=== PATIENT | female | born 1950 | race Caucasian/White ===

== ENCOUNTER → 2016-03-18 | Outpatient (CLI) | payer BC ==
--- NOTE | 2016-03-18 16:32 | MAMMOGRAPHY REPORT ---
BILATERAL DIGITAL SCREENING MAMMOGRAM WITH CAD: 03/18/2016 CLINICAL HISTORY: Routine screening. Patient has no complaints. TECHNIQUE: Bilateral CC and MLO views were obtained. Current study was also evaluated with a Comput er Aided Detection (CAD) system. COMPARISON: Comparison is made to exams dated: 03/06/2015 mammogram, 12/24/2012 mammogram, 12/27/19 14 mammogram, 07/23/2011 mammogram, 12/18/2010 mammogram, and 12/07/2009 mammogram - [facility]. BREAST COMPOSITION: There are scattered areas of fibroglandular density in both breasts. FINDINGS: There are stable intramammary lymph nodes in each upper outer quadrant. No new suspicious mass, architectural distortion or cluster of microcalcifications is seen. IMPRESSION: ACR BI-RADS CATEGORY 1: NEGATIVE There is no mammographic evidence of malignancy. A 1 year screening mammogram is recommended. The p atient will receive written notification of the results. Approximately 10% of breast cancers are not detected with mammography. A negative mammographic repor t should not delay biopsy if a clinically suggestive mass is present. Yumiko Orantes M.D. ay/:03/18/2016 15:05:09 Physician Primary Care Sports Medicine: Tania CLAY(Paul)(Brock), [facility] letter sent: Normal 1/2 BI-RADS Code: ACR BI-RADS Category 1: Negative
== END | disposition home or self-care (01) ==
LOC: C.MAMM 14:46
PROVIDERS: ATTEND Family Medicine
DX: Z12.31 Encounter for screening mammogram for malignant neoplasm of breast (principal)

== ENCOUNTER → 2017-03-24 | Outpatient (CLI) | payer OTHER ==
--- NOTE | 2017-03-25 15:30 | MAMMOGRAPHY REPORT ---
BILATERAL DIGITAL SCREENING MAMMOGRAM TOMOSYNTHESIS WITH CAD: 03/24/2017 CLINICAL HISTORY: Routine screening. Patient has no complaints. TECHNIQUE: Breast tomosynthesis in addition to standard 2D mammography was performed. Current study was also evaluated with a Computer Aided Detection (CAD) system. COMPARISON: Comparison is made to exams dated: 03/18/2016 mammogram, 03/06/2015 mammogram, 12/26/2013 mammogram, 12/24/2012 mammogram, 12/24/2011 mammogram, and 12/11/2010 mammogram - [facility]. BREAST COMPOSITION: There are scattered areas of fibroglandular density in both breasts. FINDINGS: There are stable intramammary lymph nodes in each upper outer quadrant, and stable nodulari ty in the lateral right breast. No new suspicious mass, architectural distortion or cluster of micro calcifications is seen. IMPRESSION: ACR BI-RADS CATEGORY 1: NEGATIVE There is no mammographic evidence of malignancy. A 1 year screening mammogram is recommended. The pa tient will receive written notification of the results. Approximately 10% of breast cancers are not detected with mammography. A negative mammographic report should not delay biopsy if a clinically suggestive mass is present. Yumiko Orantes M.D. ay/:03/24/2017 16:17:21 Vp Of Technology: Rosa RESENDIZ)(Brock), [facility] letter sent: Normal 1/2 BI-RADS Code: ACR BI-RADS Category 1: Negative
== END | disposition home or self-care (01) ==
LOC: C.MAMM 15:50
PROVIDERS: ATTEND Family Medicine
DX: Z12.31 Encounter for screening mammogram for malignant neoplasm of breast (principal)

== ENCOUNTER 2024-10-04 06:42 | Observation (INO) ==
--- NOTE | 2024-09-15 13:02 | PAT Medication Instructions ---
Medication Instructions Date of Service September 15, 2024 Home Medications Medication Instructions Recorded diclofenac sodium 75 mg 75 mg PO BID PRN pain #60 tabs 11/04/23 tablet,delayed release meclizine 12.5 mg tablet 12.5 mg PO TID PRN dizziness #20 08/17/24 tabs diclofenac sodium 75 mg tablet,delayed release 75 mg PO BID PRN pain levothyroxine 50 mcg tablet 50 mcg PO QAM meclizine 12.5 mg tablet 12.5 mg PO TID PRN dizziness omeprazole 40 mg capsule,delayed release 40 mg PO QAM rizatriptan 10 mg disintegrating tablet 10 mg PO UD PRN Migraine Headache Triflexerin 1 cap PO DAILY acetaminophen 500 mg tablet 1,000 mg PO Q6H PRN Pain albuterol sulfate 90 mcg/actuation aerosol inhaler 2 puff inhalation Q6H PRN Shortness Of Breath fluticasone propionate 50 mcg/actuation nasal spray,suspension (Flonase Allergy Relief) 2 spray intranasal DAILY ibuprofen 200 mg tablet 200 - 400 mg PO Q6H PRN Pain loratadine 10 mg tablet 10 mg PO DAILY PRN Allergy Symptoms omega-3 fatty acids 500 mg PO DAILY ASK your surgeon for instructions diclofenac sodium 75 mg tablet,delayed release 75 mg PO BID PRN pain ibuprofen 200 mg tablet 200 - 400 mg PO Q6H PRN Pain STOP taking 2 weeks before surgery (or as soon as possible if surgery is within 2 weeks) Triflexerin 1 cap PO DAILY omega-3 fatty acids 500 mg PO DAILY DO NOT take the morning of surgery loratadine 10 mg tablet 10 mg PO DAILY PRN Allergy Symptoms Take morning of surgery With a small sip of water, OTHERWISE NOTHING TO EAT OR DRINK AFTER MIDNIGHT: levothyroxine 50 mcg tablet 50 mcg PO QAM meclizine 12.5 mg tablet 12.5 mg PO TID PRN dizziness (if needed) omeprazole 40 mg capsule,delayed release 40 mg PO QAM rizatriptan 10 mg disintegrating tablet 10 mg PO UD PRN Migraine Headache (if needed) acetaminophen 500 mg tablet 1,000 mg PO Q6H PRN Pain (if needed) albuterol sulfate 90 mcg/actuation aerosol inhaler 2 puff inhalation Q6H PRN Shortness Of Breath (use if needed; please bring rescue inhaler with you to hospital day of surgery if possible) fluticasone propionate 50 mcg/actuation nasal spray,suspension (Flonase Allergy Relief) 2 spray intranasal DAILY Other Notes If you have any questions please call us at [phone] or [phone] or [phone] or [phone]
--- NOTE | 2024-09-19 09:52 | Anesthesiology Consultation ---
Date of Service September 19, 2024 Assessment & Plan (1) Encounter for pre-operative examination: Plan - awaiting [facility] PCP Dr. Zelaya response to clearance form. - Case discussed in detail with Dr. Hastings who advised patient have PCP clearance, nothing further will be needed from his standpoint. Patient made aware during PAT visit. Surgeon's office made aware. - PCP office visit 08/25/24: "...ER follow up, dizziness and numbness continues. taking meclizine as needed. does help...headache still on and off. Will order MRI of the brain...referral to neurology ordered...repeat TSH and free T4 in 6 weeks..." Patient reports ongoing facial numbness, intermittent headaches and dizziness (denies headaches or dizziness in clinic today) without change since seeing PCP. She states will establish care with neurology in several months. - ER 08/17/24 [facility]: "...left-sided facial tingling, dizziness, intermittent headaches, and weakness..feels like her head is spinning. Symptoms started 1 week ago...history of migraines and gets tingling in her face before her migraines, but the symptoms usually resolve after the migraine starts...migraines sometimes last for 3 days, but never up to a week...No other focal neurologic deficits by history or on exam. She does have normal sensation of the face on exam with no facial droop...has been having some shortness of breath along with the symptoms as well. Denies any chest pain...given meclizine 12.5 mg p.o. with resolution of the dizziness, but she still had the paresthesias to the left side of the face. However, she is still able to feel sensation to the left side of her face. No other focal neurologic deficits on exam...TSH elevated at 4.964 with a normal free T4 of 1.09. The patient was advised to follow-up with her PCP to determine if a change in her levothyroxine is needed. Urinalysis showed trace leukocyte esterase, but otherwise negative. Lyme disease screen negative. CT scan of the head without contrast showed no acute intracranial abnormality. CTA of the head and neck with IV contrast showed no acute evidence for CVA, aneurysm, occlusion, stenosis, dissection, or other acute abnormalities. CTA of the chest with IV contrast shows no evidence for PE, pneumonia, dissection, or other acute abnormality...patient's symptoms may also be secondary to a peripheral cause of vertigo and she was advised to follow-up with her family doctor for further outpatient management. Low suspicion for ACS as a cause of her symptoms given the normal EKG, high sensitive troponin, and recent stress echo...Admission was considered due to the patient's dizziness and paresthesias of her face. However, the symptoms have been present for the past week, she has no focal deficits on exam, and her symptoms did somewhat improve with the meclizine. The patient feels well and wishes to be discharged home..." Outpatient joint assessment: Patient is currently scheduled for inpatient pathway. If re-evaluated and patient/surgeon requests outpatient pathway, patient is not ideal candidate for outpatient joint program. Chart Review Chart Review: Pending: Refer to Additional Notes / Consult section and Patient seen in Pre Admission Testing Teaching & Discussion Pre-Anesthesia Teaching/Discussion Notes: Instructed NPO after midnight before surgery, except medications with 15 cc of water. Medication instructions provided according to the PAT guidelines. History Surgery Operation Date: 10/04/24 12:30 Proposed Procedures p Right Total Knee Arthroplasty - Ramon Blanco MD Height/Weight Height: 5 ft 7.5 in Weight: 84.1 kg Allergies Allergy/AdvReac Type Severity Reaction Status Date / Time azithromycin Allergy Unknown Verified 09/19/24 08:17 clindamycin Allergy Unknown Verified 09/19/24 08:17 Medications Home Medications Medication Instructions Recorded Confirmed Last Taken diclofenac sodium 75 mg 75 mg PO BID PRN pain #60 tabs 11/04/23 09/14/24 Unknown tablet,delayed release levothyroxine 50 mcg tablet 50 mcg PO QAM 08/17/24 09/14/24 Unknown meclizine 12.5 mg tablet 12.5 mg PO TID PRN dizziness #20 08/17/24 09/14/24 Unknown tabs omeprazole 40 mg capsule,delayed 40 mg PO QAM 08/17/24 09/14/24 Unknown release rizatriptan 10 mg disintegrating 10 mg PO UD PRN Migraine Headache 08/17/24 09/14/24 Unknown tablet Triflexerin 1 cap PO DAILY 09/14/24 09/14/24 Unknown acetaminophen 500 mg tablet 1,000 mg PO Q6H PRN Pain 09/14/24 09/14/24 Unknown albuterol sulfate 90 mcg/actuation 2 puff inhalation Q6H PRN 09/14/24 09/14/24 Unknown aerosol inhaler Shortness Of Breath fluticasone propionate 50 2 spray intranasal DAILY 09/14/24 09/14/24 Unknown mcg/actuation nasal spray,suspension (Flonase Allergy Relief) ibuprofen 200 mg tablet 200 - 400 mg PO Q6H PRN Pain 09/14/24 09/14/24 Unknown loratadine 10 mg tablet 10 mg PO DAILY PRN Allergy Symptoms 09/14/24 09/14/24 Unknown omega-3 fatty acids 500 mg PO DAILY 09/14/24 09/14/24 Unknown Past Medical History Medical History History of asthma exercise induced, more in cold weather, no recent issues; prn inhaler>rare use-last used several years History of hoarseness "has been losing voice from time to time, was previously scheduled for surgery for paralyzed left vocal cord" History of hypothyroidism Hx of gastroesophageal reflux (GERD) controlled, stable per pt Hx of hyperlipidemia Hx of migraines Hx of vertigo mid August 2024, ongoing-sees neurology Sept Moderate mitral regurgitation Moderate tricuspid regurgitation Paralyzed vocal cords left side, per pt Pulmonary hypertension mild Slow to wake up after anesthesia Patient denies h/o stroke, seizures, heart attack, heart failure, DM, HTN, blood clots/DVTs or blood transfusions. Exercise / Class Metabolic Activity II 4-5 Yardwork/Stairs/Walk up hill (shortness of breath with one flight of stairs ongoing for several years-denies change or worsening; denies chest discomfortt) Past Surgical History Surgical History History of esophagogastroduodenoscopy (EGD) Hx of arthroscopy of left knee (1989) meniscus repair Hx of bilateral cataract extraction (2023) Hx of colonoscopy Hx of wisdom tooth extraction (1979) Past Anesthesia History No Family Hx of Anesthesia Complications and Other (slow to wake with anesthesia) History of PONV No Hx of PONV and Hx of Motion Sickness Social History Smoking Status: Never smoker Do You Dip or Chew Tobacco: No Hx Alcohol Use: Yes alcohol intake frequency: holidays/special occasions only Hx Substance Use: No substance use type: does not use Review of Systems Snoring, denies witnessed apneas. Patient denies chest pain, shortness of breath, dyspnea on exertion, fever, chills, cough, wheezing, or palpitations. Physical Exam Vital Signs Vitals BP 124/79 P 68 TEMP 97.5 SP02 95% on RA RESP 18 Physical Patient resting comfortably in chair in no acute distress, alert and oriented, responding appropriately throughout visit Full cervical extension range of motion without pain TMD 3.5 finger breadths Mallampati Score 3 Dentition: two implants left upper and lower molars, several caps/crowns; denies chipped or loose teeth, or bridges Lungs: normal respiratory effort. Good air movement, clear throughout to auscultation, no adventitious breath sounds Cardiac: regular rate and rhythm, no murmurs noted Carotid arteries: negative bruit bilat Lab Results Anesthesia Preop Results Results Anesthesia Widget: WBC 7.98 K/ul (4.8-10.8) 08/17/24 Hgb 13.6 g/dl (12.0-16.0) 08/17/24 Hct 40.9 % (37.0-47.0) 08/17/24 Plt 275 K/uL (130-400) 08/17/24 Na 139 mmol/L (136-145) 08/17/24 K 4.0 mmol/L (3.5-5.1) 08/17/24 Cl 105 mmol/L (98-107) 08/17/24 CO2 27 mmol/L (21-32) 08/17/24 BUN 22 mg/dl (6-23) 08/17/24 Creat 0.90 mg/dl (0.6-1.2) 08/17/24 Glucose Level 89 mg/dl (70-99(Fasting)) 08/17/24 PT 10.4 Seconds (9.0-12.0) 08/17/24 PTT 26 Seconds (21-31) 08/17/24 INR 1.0 (0.9-1.1) 08/17/24 TSH 4.964 uIu/ml (0.300-4.500) H 08/17/24 Free T4 1.09 ng/dl (0.61-1.60) 08/17/24 Urine Color Yellow 08/17/24 Urine Appearance Clear (Clear) 08/17/24 Urine pH 6.0 (4.5-7.5) 08/17/24 Urine Specific [place] 1.004 (1.000-1.030) 08/17/24 Urine Protein Negative (Negative) 08/17/24 Urine Glucose (UA) Negative (Negative) 08/17/24 Urine Ketones Negative (Negative) 08/17/24 Urine Blood Negative (Negative) 08/17/24 Urine Nitrite Negative (Negative) 08/17/24 Urine Bilirubin Negative (Negative) 08/17/24 Urine Urobilinogen Negative (Negative) 08/17/24 Urine Leukocyte Esterase Trace (Negative) H 08/17/24 Urine WBC (Auto) 0-5 /hpf (0-5) 08/17/24 Urine RBC (Auto) 0-2 /hpf (0-2) 08/17/24 Urine Hyaline Casts (Auto) 0-2 /lpf (0-2) 08/17/24 Urine Epithelial Cells (Auto) 0-2 /hpf (0-2) 08/17/24 Urine Bacteria (Auto) None Seen (None Seen) 08/17/24 Blood Type A Negative 09/19/24 Antibody Screen NEGATIVE 09/19/24 Testing Electrocardiogram Date: 09/19/24 NSR, rate 60 bpm Chest X-Ray Date: 07/25/24 No pneumonia seen. Stress Test Date: 08/09/24 MPHR 88% Negative for myocardial ischemia Indeterminate ECG portion of pharmacologic stress test due to baseline ST abnormalities LVEF 60-65% Mild to moderate MR and TR Mild pulmonary hypertension, RVSP 30-40 mmHg Other Testing Brain MRI 09/11/24 1. No acute intracranial abnormality. 2. No abnormal enhancement. Chest CTA 08/17/24 1. No pulmonary emboli identified. 2. No acute intrathoracic findings. 3. Cardiomegaly. 4. 5 mm left lower lobe pulmonary nodule. This is likely benign. A chest CT in 6 months to ensure stability is recommended. 5. Mild biliary ductal dilatation. Correlate with liver function tests is recommended. Head and neck CTA 08/17/24 No significant arterial narrowing or occlusion seen at the brain. Unremarkable CTA of the neck. Head CT 08/17/24 No acute intracranial findings.
[~2024-10-04 06:42] MED LIST: BUPIVACAINE 0.25% PF 30 ML VIAL ONE; BUPIVACAINE 0.5 % 5 MG/1 ML PF 10ML VIAL ONE
[2024-10-04] MEDS: METOCLOPRAMIDE HCL 10 MG TABLET PO SCH (07:08)
[2024-10-04] MEDS: FAMOTIDINE 20 MG TAB PO SCH (07:08)
[2024-10-04] MEDS: ACETAMINOPHEN 500 MG TAB PO SCH ×2 (07:08→12:34)
[2024-10-04] MEDS: dexAMETHasone**PF** 10 MG/ML VIAL IV SCH (07:09)
[2024-10-04] MEDS: LR 60ML/HR IV SCH (07:09)
[2024-10-04] MEDS: CeleBREX 200 MG CAP PO SCH (07:09)
[2024-10-04] MEDS: LR 500ML BOLUS, THEN 15ML/HR IV SCH (07:23)
[2024-10-04] MEDS ORDERED: MIDAZOLAM HCL 1 MG/ML 2ML VIAL ONE (07:24)
[2024-10-04] MEDS ORDERED: LIDOCAINE 2% 2 ML VIAL/AMP(20MG/ML) INFIL ONE (07:24)
[2024-10-04] MEDS ORDERED: PROPOFOL IV EMULSION 10 MG/ML 100 ML VIAL IV ONE ×2 (07:27→08:21)
[2024-10-04] MEDS ORDERED: ONDANSETRON INJ 2 MG/ML 2 ML VIAL IV PRN ×2 (08:08→12:15)
[2024-10-04] MEDS ORDERED: ATROPINE SULFATE 0.1 MG/ML 10ML SYR IV PRN (08:08)
--- NOTE | 2024-10-04 08:36 | History & Physical Bridge Note ---
Date of Service October 04, 2024 History & Physical Bridge Note I have examined the patient, reviewed the History & Physical and in the interval since the performance of the History & Physical I have noted the following changes of clinical significance: no changes noted
[2024-10-04] MEDS: ORTHO JOINT ANESTHETIC ONE (09:50)
[2024-10-04] MEDS: ROPIV 0.5% 246mg, Ketorolac 30mg, EPINEPHrine 0.5mg in NSS INFIL SCH (09:51)
--- NOTE | 2024-10-04 10:53 | Operative Report ---
PG Post Operative Report Pre & Post Diagnosis Operation Date: 10/04/24 08:50 Pre-Op Diagnosis: Osteoarthritis knee right. Post-Op Diagnosis: Osteoarthritis knee right. I identified the patient and participated in the time-out.: Yes Procedure Operation Date: 10/04/24 08:50 Actual Procedures p Right Total Knee Arthroplasty(Right) - Ramon Blanco MD Surgeon Ramon Blanco MD Water Regulator And Valve Repairer Abisai Sargent PA-C Estimated Blood Loss 50 Findings Consistent with Post-Op Diagnosis Specimens Right knee sent for pathology. Anesthesia Type Spinal MAC Complications none Indications The patient is a 74-year-old female has a long history of bilateral knee pain the discomfort is gradually gotten worse over time. She failed conservative measures. X-rays show advanced bilateral knee arthritis. The right knee is bothering more than the left. She would like to proceed with right total knee arthroplasty. Description of Procedure Operative implants consist of: 1 Biomet Vanguard size 65 right posterior stabilized femoral component. 2. Biomet size 71 tibial tray. 3. 10 mm posterior stabilized polyethylene insert. 4. 31 x 8 all poly patella. The patient was taken to the op room, identified, placed on the operating table in the supine position. All conductors were appropriately padded. IV antibiotics were by anesthesia team. A spinal anesthetic and adductor canal block had provided in the holding area. Crook catheter was placed in sterile fashion. Right Tetrick was then placed in the right lower extremity was then prepped and draped in the usual sterile fashion. The right leg was elevated exsanguinated with use of an Esmarch and a turn was placed at 300 mmHg. An anterior approach of the right knee was then performed to longitudinal incision centered over the patella. Sharp dissection carried through subcutaneous tissue down to the extensor mechanism. A medial parapatellar arthrotomy incision was made. Some subperiosteal dissection was carried out medially. The fat pad was resected from his patella tendon. The lateral patellofemoral ligament was released. Patella subluxated laterally knee was flexed. The osteophytes taken off distal femur. The ACL PCL were then released in the distal femur and the tibia subluxated anteriorly. The external treatment LYMErix then placed on the anterior face of the tibia and adjusted 14 mm medially. The proximal tibial cut was made to remove about 2 mm of bone from the medial side. The tibia was then sized to a size 71. Attention drawn the femur. The distal femur examined with a sharp drill. Intramedullary canal was suction. A right 5 degree valgus cutting guide was placed. The distal femoral cutting block was pinned in place. The distal femoral cut was made taking additional 3 mm of bone off distal femur. The femur was then sized to a size 65. The AP cutting block was pinned parallel to the epicondylar axis which was 3 degrees of external rotation. Anterior cut, anterior chamfer, posterior cut, posterior chamfer cuts were made. The box cutting guide was placed and just slight lateral box cut was made. The knee was flexed. The remnants of the medial and lateral menisci were excised. The osteophytes were taken off the posterior aspect of the femur. A trial femoral component was placed. The tibial tray was pinned in Carlyn external rotation and the drill and stem punch used. Defect in the proximal tibia for the tibial tray. Knee was then trialed and the 10 mm insert fit most appropriately. Attention drawn the patella. The patella was cleaned of all soft tissues. Patella thickness measured about 23 mm in thickness and was cut down to about 13. It was sized to a size 31 patella. The lug holes were drilled for 31 patella. The lateral osteophytes removed. Patella button was placed. Knee was taken through range of motion patella tracked nicely with no thumbs test. Attention then drawn to placement permanent components. Components were removed. Bone plug was placed into the distal femur limb of blood loss. A double batch [place] G cement was mixed. A Biomet Vanguard size 65 right close stabilized femoral component, size 71 tibial tray, 10 mm posterior stabilized polyethylene insert, and a 31 x 8 all poly p atella then cemented in place. The knee was brought out into full extension till cement hardened. Final cement check was then performed. The pericapsular tissues were injected with total 100 cc of water mixed. Patient did receive 1 g tranexamic acid. The tourniquet was then let down for final tourniquet time 57 minutes. Hemostasis assured with electrocautery. Extensor Metros then closed with combination 1 PDS suture #1 Vicryl suture in a [id number] fashion. Extensor Meclomen was checked found to be intact with subcutaneous tissue then closed 2 Dexon suture in a buried interrupted fashion and the skin was closed skin andra. Leg was then cleaned and dried and a sterile dressing with Xeroform, 4 fours, sterile cast padding, Curry bandage were applied. Patient then transferred to the recovery room in stable condition. The patient tolerated procedure well and there were no complications. Abisai Sargent, my physician department assistant, was present for the entire procedure. His assistance was required for proper patient positioning, prepping and draping, surgical exposure, retraction, perform the technical details of the operation, placement of the implant, closure of the incision site, and placement of the sterile postoperative bandage. I attest to the content of the Intraoperative Record and any orders documented therein. Any exceptions are noted below.
--- NOTE | 2024-10-04 11:10 | XRay Report ---
XR knee RT 1 or 2V routine CLINICAL HISTORY: Surgical Post Op COMPARISON: 12/10/2023 FINDINGS: Right knee prosthesis shows no hardware complication. There is expected soft tissue gas. S kin andra are present anteriorly. IMPRESSION: Unremarkable postoperative exam. ACT 112: Negative or not required by law. Electronically signed by: Romel Bailey M.D. 10/04/2024 11:08 AM
--- NOTE | 2024-10-04 11:54 | Anesthesiology Progress Note ---
Date of Service October 04, 2024 Anesthesia Post Procedure Vital Signs Vital Signs: Temp Pulse Pulse Resp BP Pulse Ox O2 Del Method 10/04/24 11:50 82 14 144/65 H 94 Room Air 10/04/24 11:40 36.4 C L 84 12 136/70 95 Room Air 10/04/24 11:30 82 13 137/62 94 Room Air 10/04/24 11:20 80 14 141/58 H 95 Room Air 10/04/24 11:10 85 16 138/62 94 Room Air 10/04/24 11:00 81 18 131/61 95 Room Air 10/04/24 10:50 83 20 128/56 L 95 Room Air 10/04/24 10:45 36.1 C L 84 18 123/55 L 96 Room Air 10/04/24 07:03 37 C 73 20 159/86 H 97 Room Air Pain Intensity Left Heel: Pain Intensity: 0 Transfer of Care Handoff Completed per policy Notes Mental Status: alert / awake / arousable Patient Amnestic to Procedure: Yes Nausea / Vomiting: adequately controlled Pain: adequately controlled Airway Patency, RR, SpO2: stable & adequate BP & HR: stable & adequate Hydration State: stable & adequate Neuraxial Anesthesia: was administered and sensory block is resolving Anesthetic Complications: no major complications apparent and Pt Satisfied with anesthetic care
[2024-10-04] MEDS ORDERED: ALBUTEROL HFA 8 GM INHALER INH PRN (12:15)
[2024-10-04] MEDS ORDERED: ALUMINUM/MAGNESIUM SUSP 30 ML UDC PO PRN (12:15)
[2024-10-04] MEDS ORDERED: HYDROmorphone INJ 0.5 MG/0.5 ML SYR IV PRN (12:15)
[2024-10-04] MEDS ORDERED: MECLIZINE 12.5 MG TAB PO PRN (12:15)
[2024-10-04] MEDS ORDERED: RIZATRIPTAN BENZOATE 10 MG TAB PO PRN (12:15)
[2024-10-04] MEDS ORDERED: LORATADINE 10 MG TAB PO PRN (12:15)
[2024-10-04] MEDS ORDERED: NALOXONE HCL 0.4 MG/1 ML VIAL/CARP IV PRN (12:15)
[2024-10-04] MEDS ORDERED: MAGNESIUM HYDROXIDE SUSP 30 ML UDC PO PRN (12:15)
[2024-10-04] MEDS ORDERED: METOCLOPRAMIDE HCL INJ 5 MG/ML 2 ML VIAL IV PRN (12:15)
[2024-10-04] MEDS: SODIUM CHLORIDE 0.9% 1,000 ML IV SCH (12:34)
[2024-10-04] MEDS: KETOROLAC TROMETHAMINE 15 MG/ML VIAL IV SCH (12:34)
[2024-10-04] MEDS: TRANEXAMIC ACID / 0.7% NACL 1,000 MG/100 ML BAG IV SCH (16:29)
[2024-10-04] MEDS: ASCORBIC ACID 500 MG TAB PO SCH (16:29)
[2024-10-04] MEDS ORDERED: SENNA 8.6 MG TAB PO SCH (21:00)
[2024-10-04] MEDS: DOCUSATE SODIUM 100 MG CAP PO SCH (21:59)
[2024-10-04] MEDS: ASPIRIN 81 MG ECTAB PO SCH (21:59)
[2024-10-04] MEDS: SENNA 8.6 MG TAB PO SCH (21:59)
[2024-10-05 06:04] LABS: Hematocrit (blood only) 30.7 % (37.0-47.0); Hemoglobin 10.7 g/dl (12.0-16.0); Mean Corpuscular Hemoglobin 32.5 pg (25.0-34.0); Mean Corpuscular Volume 93.3 fL (80.0-100.0); Platelet Count 197 K/uL (130-400); RDW Standard Deviation 40.1 fL (36.4-46.3); Red Blood Count 3.29 M/uL (4.20-5.40); White Blood Count 10.86 K/ul (4.8-10.8)
[2024-10-05 06:22] LABS: Anion Gap 6.0 (3-11); Blood Urea Nitrogen 18.0 mg/dl (6-23); Calcium 8.8 mg/dl (8.6-10.3); Carbon Dioxide 26.0 mmol/L (21-32); Chloride 109.0 mmol/L (98-107); Creatinine Clr Calc Pharmacy 68.0 ml/min; Glucose 118.0 mg/dl (70-99(Fasting)); Potassium 4.4 mmol/L (3.5-5.1); Sodium 141.0 mmol/L (136-145)
[2024-10-05] MEDS: LEVOTHYROXINE SODIUM 50 MCG TABLET PO SCH (06:31)
[2024-10-05] MEDS: dexAMETHasone 10 MG in SYRINGE 0 ML IV SCH (07:41)
[2024-10-05] MEDS: OMEGA-3 (PURIFIED FISH OIL) 1 GM CAP PO SCH (07:43)
[2024-10-05] MEDS: FLUTICASONE PROPIONATE NA SPR 16 GM BTL NAE SCH (07:43)
[2024-10-05] MEDS: MULTIVITAMIN TAB PO SCH (07:44)
[2024-10-05] MEDS ORDERED: [UNRECOGNIZED DRUG - OTHER] PO SCH (09:00)
--- NOTE | 2024-10-05 13:46 | Orthopedic Progress Note ---
Date of Service October 05, 2024 Assessment & Plan (1) Status post right knee replacement: Plan: 74-year-old female postop day 1 from right knee replacement doing pretty well. Pain is controlled. She is neurologically intact. Hoping to go home today. Plan: 1. DVT prophylaxis including thigh-high teds, SCDs, aspirin twice a day. 2. PT/OT. Weight-bear as tolerated right total knee protocol. 3. Pain control. Doing okay with current pain regimen. 4. Disposition. Plan is to discharge home with some home health later today after therapy. Admission and Anticipated Discharge Date Admission Date: October 04, 2024 Subjective 74-year-old female postop day 1 from a right knee replacement. She is doing pretty well. Pains been controlled. No chest pain or shortness of breath. Not feeling dizzy or lightheaded. She is hoping to go home today. Physical Exam Physical Exam: Physical exam shows a pleasant middle-aged female. She is she is lying in bed talking to her looks comfortable. Examination of the right leg reveals a dressing be clean dry and intact. She can dorsiflex and plantarflex her foot appropriately. She is neurologically intact. She can do straight leg raise. Respiratory: normal respiratory effort, lungs clear to auscultation Cardiovascular: RRR, no murmur, no edema Gastrointestinal (Abdomen): normal bowel sounds, soft, nontender, no hepatosplenomegaly Results & Data Vital Signs (Past 12 Hours) Vital Signs Temp Pulse Pulse Resp BP Pulse Ox O2 Del Method 10/05/24 12:10 36.5 C 71 85 16 145/77 H 97 10/05/24 11:28 36.5 C 71 16 145/77 H 97 Room Air 10/05/24 07:08 36.4 C L 68 20 124/78 98 Room Air 10/05/24 03:00 36.8 C 67 20 118/71 95 Room Air Laboratory Results Hemoglobin is 10.7. Hematocrit is 30.7. Electrolytes are stable.
== END 2024-10-05 12:44 | disposition home health service (06) ==
LOC: ASU 06:42 → 3E 06:42